=== PATIENT | female | born 1995 | race Caucasian/White ===

== ENCOUNTER 2017-07-16 13:28 | Inpatient (IN) | payer BC ==
--- NOTE | 2017-07-16 14:31 | EDPHY ---
H & P Stated Complaint: SI Source: Patient - Personal History LMP (Females 10-55): Now Current Tetanus/Diphtheria Vaccine: Yes - Medical/Surgical History Hx Asthma: No Hx Chronic Respiratory Disease: No Hx Diabetes: No Hx Cardiac Disease: No Hx Renal Disease: No Hx Cirrhosis: No Hx Alcoholism: No Hx HIV/AIDS: No Hx Splenectomy or Spleen Trauma: No Other PMH: Bipolar mood disorder - Social History Smoking Status: Current some day smoker Time Seen by Provider: 07/16/17 14:19 HPI/ROS: CHIEF COMPLAINT: Suicidal ideation HISTORY OF PRESENT ILLNESS: The patient presents to the ED ongoing suicidal ideation. The patient reportedly has a history of bipolar disorder. She recently had in-patient psychiatric hospitalization in [place]. She reportedly is taking Lamictal and lithium for management of her symptoms. She has established a relationship with a therapist in [place] reportedly has seen a prescriber once. She reports she has been compliant with her medications. She denies significant drug or alcohol use. The patient does report that she is continuing to have increasing suicidal thoughts. The patient denies any acute medical complaints such as fever, cough or congestion. She denies any acute pain. REVIEW OF SYSTEMS: A comprehensive 10 point review of systems is otherwise negative aside from elements mentioned in the history of present illness. (Jarod Lima) - Physical Exam Exam: General Appearance: Alert, no distress Eyes: Pupils equal and round no pallor or injection ENT, Mouth: Mucous membranes moist Respiratory: There are no retractions, lungs are clear to auscultation Cardiovascular: Regular rate and rhythm Gastrointestinal: Abdomen is soft and nontender, no masses, bowel sounds normal Neurological: A&O, normal motor function, normal sensory exam, normal cranial nerves Skin: Warm and dry, no rashes Musculoskeletal: Neck is supple nontender Extremities: symmetrical, full range of motion Psychiatric: Depressed, cooperative, endorses suicidal ideation (Jarod Lima) Constitutional: Initial Vital Signs Temperature (C) 37 C 07/16/17 13:53 Heart Rate 76 07/16/17 13:53 Respiratory Rate 16 07/16/17 13:53 Blood Pressure 125/85 H 07/16/17 13:53 O2 Sat (%) 98 07/16/17 13:53 O2 Delivery Mode Room Air Allergies/Adverse Reactions: latex Allergy (Verified 07/16/17 13:52) Home Medications: Medication Instructions Recorded LaMICtal 07/16/17 [place] Carbonate 07/16/17 Microgestin 24 Fe 1 mg-20 Mcg 07/16/17 Medical Decision Making ED Course/Re-evaluation: The patient was medically cleared for psychiatric evaluation by myself at 3:20 p.m.. She was placed on an M1 psychiatric hold secondary to her suicidal ideation. Patient was re-evaluated at 8:00 p.m.. She is resting comfortably. She is still awaiting psychiatric evaluation. The patient will be turned over to Dr. Moody at shift change pending psychiatric disposition. (Jarod Lima) Re-evaluation by me at 10:35 p.m.. Patient is stable and resting comfortably. She has no complaints. Awaiting psychiatric evaluation (Mich Moody) 11:20 p.m.- The patient has been accepted at [address] [place] [address] at [facility] for inpatient hospitalization by Dr. Lemon. I have completed the EMTALA form. (Diana Sofia) Differential Diagnosis: Differential diagnosis considered includes bipolar mood disorder, psychosis, depression, suicidal ideation (Jarod Lima) Care Turn Over: Dr. Petty at 2245 (Mich Moody) - Data Points Laboratory Results: Laboratory Results 07/16/17 14:20 07/16/17 14:20 07/16/17 07/16/17 07/16/17 14:20 14:20 14:20 WBC RBC Hgb Hct MCV MCH MCHC RDW Plt Count MPV Neut % (Auto) Lymph % (Auto) [place] % (Auto) Eos % (Auto) Baso % (Auto) Nucleat RBC Rel Count Absolute Neuts (auto) Absolute Lymphs (auto) Absolute Monos (auto) Absolute Eos (auto) Absolute Basos (auto) Absolute Nucleated RBC Immature Gran % Immature Gran # Sodium 142 mEq/L mEq/L (135-145) Potassium 4.3 mEq/L mEq/L (3.5-5.2) Chloride 105 mEq/L mEq/L (97-110) Carbon Dioxide 24 mEq/l mEq/l (22-31) Anion Gap 13 mEq/L mEq/L (8-16) BUN 12 mg/dL mg/dL (7-23) Creatinine 0.9 mg/dL mg/dL (0.6-1.0) Estimated GFR > 60 Glucose 70 mg/dL mg/dL (70-100) Calcium 10.0 mg/dL mg/dL (8.5-10.4) Beta HCG, Qual NEGATIVE Urine Opiates Screen NEGATIVE (NEGATIVE) Urine Barbiturates NEGATIVE (NEGATIVE) Ur Phencyclidine Scrn NEGATIVE (NEGATIVE) Ur Amphetamine Screen NEGATIVE (NEGATIVE) U Benzodiazepines Scrn NEGATIVE (NEGATIVE) [place] 0.8 mEq/L mEq/L (0.6-1.2) Urine Cocaine Screen NEGATIVE (NEGATIVE) U Marijuana (THC) Screen NON-NEGATIVE H (NEGATIVE) Ethyl Alcohol < 10 mg/dL mg/dL (0-10) 07/16/17 14:20 WBC 7.98 10^3/uL 10^3/uL (3.80-9.50) RBC 4.52 10^6/uL 10^6/uL (4.18-5.33) Hgb 14.7 g/dL g/dL (12.6-16.3) Hct 42.5 % % (38.0-47.0) MCV 94.0 fL fL (81.5-99.8) MCH 32.5 pg pg (27.9-34.1) MCHC 34.6 g/dL g/dL (32.4-36.7) RDW 11.0 % L % (11.5-15.2) Plt Count 248 10^3/uL 10^3/uL (150-400) MPV 9.0 fL fL (8.7-11.7) Neut % (Auto) 71.4 % % (39.3-74.2) Lymph % (Auto) 20.6 % % (15.0-45.0) [place] % (Auto) 6.3 % % (4.5-13.0) Eos % (Auto) 1.0 % % (0.6-7.6) Baso % (Auto) 0.4 % % (0.3-1.7) Nucleat RBC Rel Count 0.0 % % (0.0-0.2) Absolute Neuts (auto) 5.71 10^3/uL 10^3/uL (1.70-6.50) Absolute Lymphs (auto) 1.64 10^3/uL 10^3/uL (1.00-3.00) Absolute Monos (auto) 0.50 10^3/uL 10^3/uL (0.30-0.80) Absolute Eos (auto) 0.08 10^3/uL 10^3/uL (0.03-0.40) Absolute Basos (auto) 0.03 10^3/uL 10^3/uL (0.02-0.10) Absolute Nucleated RBC 0.00 10^3/uL 10^3/uL (0-0.01) Immature Gran % 0.3 % % (0.0-1.1) Immature Gran # 0.02 10^3/uL 10^3/uL (0.00-0.10) Sodium Potassium Chloride Carbon Dioxide Anion Gap BUN Creatinine Estimated GFR Glucose Calcium Beta HCG, Qual Urine Opiates Screen Urine Barbiturates Ur Phencyclidine Scrn Ur Amphetamine Screen U Benzodiazepines Scrn [place] Urine Cocaine Screen U Marijuana (THC) Screen Ethyl Alcohol Departure - Departure Disposition: [facility] IP Clinical Impression: Suicidal ideation Condition: Fair Referrals: NONE *PRIMARY CARE P,. [Primary Care Provider] - As per Instructions
[2017-07-16 14:34] LABS: PLATELET COUNT 248 10^3/uL (150-400)
[2017-07-17] MEDS ORDERED: MAG HYDROX/AL HYDROX/SIMETH 30 ML UDCUP PO PRN (00:20)
[2017-07-17] MEDS ORDERED: LORazepam 0.5 MG TAB PO PRN (00:20)
[2017-07-17] MEDS ORDERED: NICOTINE POLACRILEX 2 MG GUM B PRN (00:20)
[2017-07-17] MEDS ORDERED: MAGNESIUM HYDROXIDE 30 ML UDCUP PO PRN (00:20)
[2017-07-17] MEDS: ACETAMINOPHEN 325 MG TAB PO PRN (00:47)
[2017-07-17 01:04] VITALS: RESP 14
[2017-07-17] MEDS: LITHIUM CARBONATE ER 450 MG TAB PO SCH (08:42)
[2017-07-17] MEDS: lamoTRIgine 100 MG TAB PO SCH (08:42)
[2017-07-17] MEDS ORDERED: OLANZapine 2.5 MG TAB PO ONE (12:58)
--- NOTE | 2017-07-17 14:07 | BCON ---
[f rep st] BEHAVIORAL HEALTH CONSULTATION INTERNAL MEDICINE CONSULTATION. DATE OF CONSULTATION: 07/17/2017 REFERRING PHYSICIAN: Agustina Lemon MD REASON FOR REFERRAL: Medical clearance for inpatient behavioral health stay. HISTORY OF PRESENT ILLNESS: This patient came to the emergency department yesterday with suicidal ideation. She has a history of bipolar disorder and a previous recent psychiatric hospitalization. She was evaluated by the mental health team and admitted for further psychiatric care. Currently, she is without any acute complaints other than reporting that she feels stressed. PAST MEDICAL HISTORY: Bipolar disorder. PAST SURGICAL HISTORY: She has not had any surgeries. MEDICATIONS: 1. control pill. 2. Oriental carbonate. 3. Lamictal. SOCIAL HISTORY: She is living with her uncle. She is an occasional cigarette smoker and reports that her cigarette smoking has reduced since she quit drinking approximately a month ago. She has recently moved from [place], [place] where most of her family lives. She is not employed nor is she in school. FAMILY HISTORY: Noncontributory. REVIEW OF SYSTEMS: She denies fevers, chills, weight change, cough, dyspnea, nausea, vomiting, constipation, diarrhea, dysuria or urinary frequency. Otherwise, a 10-point review of systems is negative. PHYSICAL EXAM: VITAL SIGNS: Blood pressure at 1 o'clock this morning was 135/ 65, heart rate was 86, respiratory rate was 14, oxygen saturation was 97% on room air. Temperature was 37 degrees centigrade. Her weight is 52.2 kg for a body mass index of 19.1. GENERAL: This is a well-nourished, well-developed woman who appears her chronologic age, cooperative and in no acute distress. HEENT: Extraocular movements are intact. Pupils are equal, round, reactive to light. Mucous membranes are moist. Dentition is in good condition. NECK: Supple. HEART: There is a regular rate and rhythm with no murmurs, rubs, or gallops. LUNGS: Clear to auscultation bilaterally. ABDOMEN: Benign. EXTREMITIES: There is no cyanosis, clubbing, or edema. NEUROLOGIC: She is alert and oriented x3. Cranial nerves 2-12 are grossly intact. There is no focal weakness. Sensation is intact to light touch and gait is within normal limits. SKIN: She has approximately 0.5 cm comedone on her right forehead along with scattered smaller comedones on the forehead. LABORATORY STUDIES: Drawn in the emergency department: CBC was overall within normal limits. She had a slightly small red cell distribution width of no clinical significance. Serum chemistry revealed normal renal function and electrolytes. Beta hCG was negative for . Toxicology screen in the serum revealed a lithium level of 0.8. There was no ethyl alcohol detected. Toxicology screen in the urine was non-negative for marijuana, but was otherwise negative for substances of abuse. ASSESSMENT/RECOMMENDATIONS: 1. Mental health issues pending further evaluation and management per Psychiatry and the mental health team. 2. Tobacco dependence syndrome. She has reduced her tobacco smoking, and she was congratulated on this. Smoking cessation was encouraged. 3. Acne vulgaris. She is not particularly concerned. Benzoyl peroxide is not available on the hospital formulary. She can follow up with her primary care provider after discharge. The first step would be an [id number] topical agent such as benzoyl peroxide. I see no medical contraindications to this patient's continued stay on the inpatient behavioral health unit or to any psychiatric medications or procedures. Thank you very much for including me in the care of this patient. Please do not hesitate to contact me or the hospitalist service should there be a need for further medical evaluation. /[id number]/MODL MTDD
--- NOTE | 2017-07-17 14:42 | BAPA ---
[f rep st] ADMISSION PSYCHIATRIC ASSESSMENT IDENTIFICATION: This is a 22-year-old, single white female who is living with her uncle here in [place]. She is currently unemployed. She moved to [place] from [place] a month ago. Her parents and sisters live in the [place] area. CHIEF COMPLAINT: "I hate it here." HISTORY OF PRESENT ILLNESS: The patient is a limited historian. She is circumstantial and vague at times. She reports that she is "manic and suicidal. " She reports that she has a history of bipolar disorder, has a history of going multiple days with very little sleep with agitation, racing thoughts, promiscuity, and impulsive behavior, alternating with depressive episodes of low mood, low energy, feeling hopeless and overwhelmed. She reports she was discharged from a psychiatric facility in [place] a month ago and then came to [place] to live with her uncle. Her uncle smokes marijuana. She smokes marijuana with him at times. She reports that he is "not very supportive" and reports feeling "anxious and on edge with him." Apparently, he discourages her from taking psychiatric medications. She reports that in the past week she has had recurrent thoughts of overdosing on medications. She reports feeling hopeless because she is no where near her family or friends. She reports she has severe mood swings where she is dysphoric, hopeless, sad, and suicidal, alternating with feeling energetic, agitated, and erratic with her thoughts with poor concentration and an over abundance of thoughts. She denies any violent thoughts. She denies any paranoia or hallucinations. She reports compliance with lithium 900 mg and Lamictal 300 mg which she has been taking from her recent psychiatric hospitalization. She admits to smoking cannabis twice a week. She denies any recent alcohol abuse. She reports a history of binge drinking alcohol including blackouts, nausea, vomiting, feeling sick and having relationship and functional impairment in the past. She denies any recent dangerous behaviors toward herself or others. She reports stress due to being from her friends in [place] and her family in [place]; she reports 'they shipped me out here to stay with my uncle and don't care about me. ' Per the chart, the patient is on an M1 hold from the emergency department after reporting suicidal thoughts to overdose on medications. She does endorse a history of borderline personality disorder symptoms. She reports having chronic mood instability, up and down relationships with peers, intense anger, acting-out behaviors when upset, feeling intense emotional distress of being ignored or feeling abandoned by others. She does report in the past being referred to dialectic behavior therapy groups in the past but not following through with that. PAST PSYCHIATRIC HISTORY: She reports she has struggled with depression and mood swings since age 13. She reports having medications for depression with numerous antidepressant trials with no benefit, including past Zoloft, Wellbutrin, Prozac and Lexapro and Cymbalta. She reports Cymbalta made her more anxious. She reports a history of abusing Adderall in the past when prescribed Adderall for ADHD. She reports past trials of Abilify, Latuda and Seroquel, is unsure if they were helpful or not. She reports possibly feeling akathisia or feeling violent after taking Latuda. She denies any actual suicide attempts. She denies any history of violence toward others. She reports 4 psychiatric hospitalizations starting at age 18 in the [place] area including [facility], [facility], [facility]. She denies any current legal problems. PAST MEDICAL HISTORY: She reports history of tonsillectomy and episodic nausea. She takes Microgestin oral contraceptive pill and has no plan for . Denies TBI or seizures. ALLERGIES: Latex. SOCIAL HISTORY: She was raised by her parents without abuse or neglect. She denies any history of trauma. Both of her parents and multiple siblings live in the [place] area. She is currently living with her uncle here in [place]. She graduated from high school and only did 1 year of college. She is unemployed. She has never been , has no children, has never been in the . FAMILY HISTORY: She reports her father is a recovering alcoholic. Her mother takes Zoloft for anxiety. Her parents and siblings are physically healthy. She has a family history of Alzheimer disease in 2 grandparents as well. She denies any family history of suicide. LABS: White blood cell count 7.9, hemoglobin 14.7, platelet count 248. Sodium 142, potassium 4.3, creatinine 0.9, glucose 70, calcium 10.0. Serum beta HCG was negative. Urine drug screen was positive for cannabis only, negative for other drugs of abuse. Blood was negative for alcohol with a lithium level of 0.8. CURRENT MEDICATIONS: [place] 900 mg a day, Lamictal 300 mg a day. She reports she has been taking Lamictal for several years and has no history of a rash with this medication. PHYSICAL EXAMINATION: VITAL SIGNS: She is 165 cm, 52.1 kg with a BMI of 19.1. She has a blood pressure 139/65, heart rate 86, respiratory rate 14, pulse ox 97% on room air, temperature is 37 degrees. GENERAL: She is an ambulatory white female. She appears thin. She has very severe emotional lability on the unit. She is pacing at times, crying and screaming on the phone. Other times appearing withdrawn. Other times socializing with other patients and appearing euthymic. During interview, she is euphoric and laughing at times, other times dysphoric, tearful, crying, and appears somewhat agitated. Her speech is loud at times, but regular in rate and rhythm. Her thoughts are organized. She denies violent thoughts. She denies paranoia or hallucinations. She reports daily thoughts of suicide by overdosing on pills over the past week. She has fair memory, limited insight and impaired judgment. ASSESSMENT: Bipolar disorder type 1, most recent episode depressed, severe, with mixed features; Borderline personality disorder; Cannabis use disorder, mild; History of alcohol use disorder, severe. The overall assessment is the patient is on M1 hold for reporting suicidal thoughts to overdose. The patient apparently has had multiple hospitalizations for severe mood symptoms in [place] but no past suicide attempts. She is currently describing numerous symptoms of borderline personality disorder including feeling abandoned by her parents and siblings and friends and feeling ignored by her uncle. She also has severe emotional dysregulation with no coping skills at this time. The patient does appear to have a mixed episode of bipolar disorder despite taking lithium and Lamictal. PLAN: 1. Added on a hemoglobin A1c, lipid panel, TSH, ALT and AST to the blood work from the ER. 2. Continue lithium 900 mg daily. 3. Continue Lamictal 300 mg daily. Discussed the risk of Garrison-Luis syndrome. Patient reports she has taken this medication for 3 years and has been on this dose for over a month. 4. The patient is on M1 hold and will be on suicide precautions with 15 minute checks. 5. Discussed the risks and benefits of mood stabilizer medications for mixed episode including increasing the dose of lithium, however, the patient reports in past having blurred vision, nausea and diarrhea with a higher dose of lithium. The patient is agreeable to start olanzapine 2.5 mg now and 2.5 mg p.o. q.h.s. as a mood stabilizer. 6. Ordered hydroxyzine 25 mg q.6 hours p.r.n. anxiety or insomnia 7. Patient was given handouts on borderline personality disorder, bipolar disorder, and a handout from the [employer] regarding olanzapine including a description of the risks of metabolic syndrome and tardive dyskinesia. 8. We will attempt to get collateral information from the patient's family and previous psychiatric hospitalizations. /[id number]/MODL MTDD
[2017-07-17] MEDS ORDERED: OLANZapine 2.5 MG TAB PO SCH (21:00)
[2017-07-18] MEDS: lamoTRIgine 100 MG TAB PO SCH (08:42)
[2017-07-18] MEDS: LITHIUM CARBONATE ER 450 MG TAB PO SCH (08:42)
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
[2017-07-18] MEDS: ACETAMINOPHEN 325 MG TAB PO PRN (14:23)
[2017-07-18] MEDS: hydrOXYzine HCL 25 MG TAB PO PRN (20:07)
[2017-07-18] MEDS: OLANZapine 2.5 MG TAB PO SCH (20:07)
[2017-07-19] MEDS: OMEGA-3 FATTY ACIDS 1,000 MG CAP PO SCH (08:52)
[2017-07-19] MEDS: lamoTRIgine 100 MG TAB PO SCH (08:52)
[2017-07-19] MEDS: LITHIUM CARBONATE ER 450 MG TAB PO SCH (08:52)
[2017-07-19] MEDS: FOLIC ACID 1 MG TAB PO SCH (08:52)
--- NOTE | 2017-07-19 11:48 | SOAPPROG ---
SOAP Progress Note Assessment/Plan: Assessment: Bipolar Disorder I depressed with mixed features Borderline PD Cannabis Use Disorder Mild History of Alcohol Use Disorder Employment, housing problems Patient admitted on M-1 hold for report of suicidal thoughts to overdose. Patient appears more euthymic and appropriate but had significant mood lability yesterday; denies SI Plan: Patient agrees to voluntary treatment Continue Olanzapine 5mg QHS for mood stabilization, started after admission Continue [place] 900mg Continue Lamictal 300mg Monitor mood, risk of self-harm Education about bipolar disorder and borderline PD Coordinate discharge planning with parents in [place] or uncle in [place] Plan discharge Saturday07/22/17 if continuing to improve 07/19/17 11:50 Subjective: CC: "Better I think" Patient reports yesterday having brief episodes of feeling agitated, irritable, and briefly severely dysphoric with brief tearfulness. Reports sleeping well and feels more calm this AM and denies severe mood swings this AM. Reports today feeling more hopeful about the future and denies SI. Reports goal is feel well enough to get a job. Reports enjoying interacting with children and wants to get a job involving childcare or education. Reports prior to admit feeling alone, 'stressed out' with severe mood swings. Reports tolerating Olanzapine, feels it is improving mood stability, does not want dose increase due to fear of side effects, but wants to continue taking. Interested in therapy for Borderline PD after discharge and getting medication management from a psychiatrist. Objective: Vital Signs Temp Pulse Resp BP Pulse Ox 36.7 C 58 L 14 92/67 L 100 07/19/17 06:00 07/19/17 06:00 07/19/17 06:00 07/19/17 06:00 07/19/17 06:00 Alert WF. Brief smiling, anxious affect at times. Speech RRR, briefly loud. Mood 'better I think.' Thoughts organized. Denies SI/HI/AH/paranoia. Improved insight. Appropriate judgment. Staff report patient slept 10 hours. Labile on unit yesterday but able to calmly attend ART group this AM. - Time Spent With Patient Time Spent With Patient: 30 minutes - Pending Discharge Pending Discharge Within 24 Hours: No Pending Discharge Within 48 Hours: No ICD10 Worksheet Patient Problems: Problems Problem Status Onset Bipolar disorder, unspecified Acute Borderline personality disorder Acute Cannabis abuse Acute Suicidal ideation Acute
[2017-07-19] MEDS: OLANZapine 2.5 MG TAB PO SCH (20:36)
[2017-07-19] MEDS: hydrOXYzine HCL 25 MG TAB PO PRN (20:36)
[2017-07-20 07:07] VITALS: O2SAT 96
[2017-07-20] MEDS: lamoTRIgine 100 MG TAB PO SCH (09:21)
[2017-07-20] MEDS: FOLIC ACID 1 MG TAB PO SCH (09:21)
[2017-07-20] MEDS: OMEGA-3 FATTY ACIDS 1,000 MG CAP PO SCH (09:21)
[2017-07-20] MEDS: LITHIUM CARBONATE ER 450 MG TAB PO SCH (09:21)
[2017-07-20] MEDS: OLANZapine DISINTEGR 5 MG TAB PO PRN (14:16)
--- NOTE | 2017-07-20 15:53 | SOAPPROG ---
SOAP Progress Note Assessment/Plan: Assessment: Per Dr. Ch's notes: Assessment: Bipolar Disorder I depressed with mixed features Borderline PD Cannabis Use Disorder Mild History of Alcohol Use Disorder Employment, housing problems Patient admitted on M-1 hold for report of suicidal thoughts to overdose. Patient appears more euthymic and appropriate but had significant mood lability yesterday; denies SI Plan: Patient agrees to voluntary treatment Continue Olanzapine 5mg QHS for mood stabilization, started after admission Continue [place] 900mg Continue Lamictal 300mg Monitor mood, risk of self-harm Education about bipolar disorder and borderline PD Coordinate discharge planning with parents in [place] or uncle in [place] Plan discharge Saturday07/22/17 if continuing to improve Plan: 07/20/17 15:47 1. Patient denies any mood related problems. Denies any SI/HI. 2. Reports Olanzapine has "fixed" her mood. 3. Wants to d/c on Saturday, but isn't sure yet where she will go. Subjective: Met with patient, reviewed chart and d/w staff. Patient says she is feeling "better" and "more stable" on new medication, Olanzapine. She says the new med has "fixed" her mood problem. She denies feeling sad, anxious or depressed. She denies any thoughts, plan or intent to harm herself or anyone else. There is no evidence of branden or mixed symptoms. She denies any psychotic symptoms. She says she doesn't know where she wants to live after d/c. She doesn't get along well with her uncle where she was living in [place]. But she also doesn't know "where I would live in [place]" if she returned to [place]. Patient's FOC called several times and left call back number, but patient says she would rather visit with her friend, Edis, than call her FOC back. MD encouraged her to talk to her FOC today to find out if she can stay somewhere other than at uncle's house or get a flight back to [place]. Objective: Vital Signs Temp Pulse Resp BP Pulse Ox 36.6 C 77 14 91/54 L 96 07/20/17 06:00 07/20/17 06:00 07/20/17 06:00 07/20/17 06:00 07/20/17 06:00 MSE: Affect: Euthymic Mood: "Stable" TP: Linear TC: Denies any SI/HI, no AH/ VH Insight/Judgment: Poor - Time Spent With Patient Time Spent With Patient: 20" - Pending Discharge Pending Discharge Within 24 Hours: No Pending Discharge Within 48 Hours: Yes Pending Discharge Date: 07/22/17 (Will likely d/c on Saturday ) Pending Discharge Time: 11:00 ICD10 Worksheet Patient Problems: Problems Problem Status Onset Bipolar disorder, unspecified Acute Borderline personality disorder Acute Cannabis abuse Acute Suicidal ideation Acute
[2017-07-20] MEDS: OLANZapine 2.5 MG TAB PO SCH (20:14)
[2017-07-20] MEDS: hydrOXYzine HCL 25 MG TAB PO PRN (21:09)
[2017-07-21] MEDS: LITHIUM CARBONATE ER 450 MG TAB PO SCH (08:28)
[2017-07-21] MEDS: OMEGA-3 FATTY ACIDS 1,000 MG CAP PO SCH (08:29)
[2017-07-21] MEDS: lamoTRIgine 100 MG TAB PO SCH (08:29)
[2017-07-21] MEDS: FOLIC ACID 1 MG TAB PO SCH (08:29)
--- NOTE | 2017-07-21 15:12 | SOAPPROG ---
SOAP Progress Note Assessment/Plan: Assessment: Per Dr. Ch's notes: Assessment: Bipolar Disorder I depressed with mixed features Borderline PD Cannabis Use Disorder Mild History of Alcohol Use Disorder Employment, housing problems Patient admitted on M-1 hold for report of suicidal thoughts to overdose. Patient appears more euthymic and appropriate but had significant mood lability yesterday; denies SI Plan: Patient agrees to voluntary treatment Continue Olanzapine 5mg QHS for mood stabilization, started after admission Continue [place] 900mg Continue Lamictal 300mg Monitor mood, risk of self-harm Education about bipolar disorder and borderline PD Coordinate discharge planning with parents in [place] or uncle in [place] Plan discharge Saturday07/22/17 if continuing to improve Plan: 07/20/17 15:47 1. Patient denies any mood related problems. Denies any SI/HI. 2. Reports Olanzapine has "fixed" her mood. 3. Wants to d/c on Saturday, but isn't sure yet where she will go. 07/21/17 15:08 1. Patient denies any SI/HI. 2. Patient plans to stay in [place] and "get a job." 3. Still wants to d/c on Saturday. Subjective: Met with patient, reviewed chart and d/w staff. Patient spoke to her MOC and FOC by phone yesterday. She says her family doesn't want her to return to [place] b/c too many of her friends use drugs and are a bad influence. The patient has also met a "friend" at [facility] she likes. She plans to return to uncle's house and will start looking for a job and a place to live on her own. She says her family will help support her. She will f/u with providers at [facility] for medications and therapy. She denies any SI/HI. Objective: Vital Signs Temp Pulse Resp BP Pulse Ox 36.6 C 70 14 107/63 96 07/21/17 06:00 07/21/17 06:00 07/21/17 06:00 07/21/17 06:00 07/21/17 06:00 MSE: Affect: Euthymic Mood: "Good" TP: Linear TC: Denies any SI/HI, no AH/VH Insight/Judgment: Fair - Time Spent With Patient Time Spent With Patient: 15" - Pending Discharge Pending Discharge Within 24 Hours: No Pending Discharge Within 48 Hours: No ICD10 Worksheet Patient Problems: Problems Problem Status Onset Bipolar disorder, unspecified Acute Borderline personality disorder Acute Cannabis abuse Acute Suicidal ideation Acute
[2017-07-21] MEDS: OLANZapine DISINTEGR 5 MG TAB PO PRN (15:36)
[2017-07-21] MEDS: OLANZapine 2.5 MG TAB PO SCH (20:40)
[2017-07-22 06:27] VITALS: BP 110/69; PULSE 72; TEMP 97.9
[2017-07-22] MEDS: LITHIUM CARBONATE ER 450 MG TAB PO SCH (08:14)
[2017-07-22] MEDS: FOLIC ACID 1 MG TAB PO SCH (08:14)
[2017-07-22] MEDS: lamoTRIgine 100 MG TAB PO SCH (08:14)
[2017-07-22] MEDS: OMEGA-3 FATTY ACIDS 1,000 MG CAP PO SCH (08:14)
--- NOTE | 2017-07-22 12:58 | BDS ---
[f rep st] BEHAVIORAL HEALTH DISCHARGE SUMMARY IDENTIFICATION: This is a 22-year-old single white female who lives with her uncle. She has never been and has no children. She graduated from high school. Her parents and her sisters live in the [place] area. She has been in [place] for 1 month. REASON FOR ADMISSION: Please see initial psychiatric evaluation from July 17, 2017. The patient apparently has a history of bipolar disorder and borderline personality disorder with a history of several psychiatric hospitalizations in the [place] area. She also has a history of binge drinking alcohol. The patient moved out to [place], [place] to live with her uncle. She was taking lithium 900 mg a day, Lamictal 300 mg a day prior to the admission. She had been smoking cannabis, but had been abstaining from alcohol. She was admitted for recurrent thoughts of overdosing on pills. She also reported severe hypersensitivity to the actions of her family, friends, and uncle, was angry with them, felt abandoned, felt ignored by her uncle and her family, and felt hopeless. She was having mixed manic symptoms with racing thoughts, agitation, severe mood swings, and severe mood dysregulation. HOSPITAL COURSE: The patient was admitted for suicidal thoughts to overdose on pills. The patient was extremely agitated, labile, loud, tangential, and irrational. She was started on olanzapine 5 mg at night. She was continued on Lamictal 300 mg a day and lithium 900 mg a day. The patient also takes a prescription oral contraceptive pill. The patient had a marked improvement. She became less emotionally dysregulated, more calm, less agitated, less labile. The patient initially reported that she wanted to return to the [facility], where her parents and her siblings live. However, apparently they wanted her to move to [place] to get away from several friends that she was binge drinking alcohol with. The patient was receptive to a diagnosis of borderline personality disorder. She endorsed numerous symptoms including lack of self-direction, hypersensitivity to the actions of others, recurrent fear of being abandoned and ignored, difficulty with emotion regulation and anger. The patient was receptive to discussion of the importance of receiving dialectic behavior therapy for counseling after discharge for borderline personality disorder. The patient did endorse numerous symptoms of bipolar disorder and reported significant improvement in her mood stability. She, on the unit, did appear to have improvement. She became less agitated, less labile, and more organized with her thinking and less dramatic in her behaviors. She initially was tearful, crying, screaming, intrusive at the nurse's station and agitated on the phone with her family and friends. This improved dramatically during the course of the hospitalization. Prior to discharge, the patient reported that she no longer wanted to move back to the [place] area with her parents in her sisters. She, instead, wanted to continue living in the [facility] with her uncle. The patient was agreeable to the importance of outpatient psychotherapy for borderline personality disorder and medication management for bipolar disorder after discharge. The patient was counseled about the risks of her medications. She was counseled about the risks of Garrison-Luis syndrome with Lamictal. The patient reported she had taken Lamictal for about 3 years and had been on the current dose for many months. She was given information about the risks of lithium causing defects, hypothyroidism, and renal dysfunction, and signs and symptoms of toxicity. She was also given information about the risks of olanzapine including tardive dyskinesia, sedation, weight gain, metabolic syndrome. CONDITION ON DISCHARGE: She is an alert white female in no acute distress who is ambulatory, cooperative, pleasant. She has good eye contact. Her affect is euthymic and reactive. Her mood is "pretty good." Her thoughts are organized. She denies any thoughts to hurt herself or others. She denies hallucinations or paranoia. Her memory is fair. Her insight is fair. Her judgment is appropriate. CONSULTATIONS: The patient had a baseline physical exam by Dr. Fishman on July 17, 2017. PROCEDURES: None. LABS PENDING: None. LABS: She had a white blood cell count of 7.9, hemoglobin 14.7, platelet count 248. Sodium 142, potassium 4.3, creatinine 0.9, glucose 70. Hemoglobin A1c 4.4. Calcium 10.0, AST 34, ALT 22. Triglycerides 159, LDL 89, HDL 69. TSH 3.5. Serum beta HCG was negative. Urine tox screen was positive for cannabis. [place] level of 0.8. Serum alcohol level was negative. ADVANCE DIRECTIVE: The patient declined advance directive. NICOTINE USE DISORDER SCREENING: The patient denied regular use of nicotine products. ALCOHOL USE DISORDER SCREENING: The patient denied alcohol use in the past month. She does report a history of binge drinking. She was not interested in substance abuse treatment at this time. DISCHARGE DIAGNOSES: Bipolar disorder type 1, most recent episode depressed, severe, with mixed features. Borderline personality disorder. Cannabis use disorder, mild. History of alcohol use disorder. DISCHARGE MEDICATIONS: [place] extended release 900 mg by mouth daily (which is two 450 mg capsules daily), olanzapine 5 mg p.o. at bedtime, Lamictal 300 mg p.o. daily, folic acid 1 mg daily, omega-3 fatty acids 1000 mg daily. The patient also takes a prescription oral contraceptive pill from her primary care provider. DISPOSITION: The patient is leaving the unit with her uncle. FOLLOWUP: The patient has outpatient individual therapy and psychiatric medication management. See patient accounts coordinator notes. LEGAL STATUS: The patient was admitted on an M1 hold, then agreed to receive voluntary treatment in the hospital and will be discharged to be receiving outpatient treatment on a voluntary basis. /[id number]/MODL MTDD
== END 2017-07-22 16:10 | disposition home or self-care (01) | DRG 885 ==
LOC: BBEH 07-17 00:10
PROVIDERS: ADMIT Psychiatry & Neurology Behavioral Neurology & Neuropsychiatry
DX: F31.5 Bipolar disorder, current episode depressed, severe, with psychotic features (principal); F60.3 Borderline personality disorder; F12.10 Cannabis abuse, uncomplicated; R45.851 Suicidal ideations; F17.210 Nicotine dependence, cigarettes, uncomplicated; L70.0 Acne vulgaris; Z63.8 Other specified problems related to primary support group
CPT/HCPCS: 80305; G0480

== ENCOUNTER 2017-10-23 13:54 | Emergency (ER) | payer BC ==
[2017-10-23 14:36] LABS: PLATELET COUNT 259 10^3/uL (150-400)
--- NOTE | 2017-10-23 14:41 | EDPHY ---
H & P Time Seen by Provider: 10/23/17 14:37 HPI/ROS: CHIEF COMPLAINT: Worried about lithium toxicity HISTORY OF PRESENT ILLNESS: 22-year-old woman presents concerned about lithium toxicity with blurry vision hand tremors and diarrhea for about a week. She said she had this back in November of last year when she 1st started lithium in [place], and thinks that her symptoms today are probably because of the heat but also worries that maybe it is from the lithium. She feels a little bit thirsty but has been drinking lots of water. Symptoms mild, no bloody diarrhea or melena. No double vision or headache. REVIEW OF SYSTEMS: Eye: HPI ENT: no sore throat Cardiac: no chest pain or syncope Pulmonary: no cough or SOB Abdomen: No abdominal pain Musculoskeletal: no back pain Skin: no rash Neuro: no headache Constitutional: no fever : no urinary symptoms A comprehensive 10 point review of systems is otherwise negative aside from elements mentioned in the history of present illness. PAST MEDICAL HISTORY: Includes bipolar mood disorder, clavicle fracture H 14, tonsillectomy Social history: Used to live in [place] but currently lives in [place], no recent foreign travel General Appearance: Alert and conversant, cooperative. Eyes: No scleral icterus. No nystagmus, pupils equal and reactive. ENT, Mouth: Normal mucous membranes. Respiratory: Normal respiratory effort, breath sounds equal, lungs are clear to auscultation. Cardiovascular: Regular rate and rhythm. Gastrointestinal: Abdomen is soft and non tender. Neurological: Alert, face symmetric, normal motor and sensory in extremities. No tremor observed by myself, normal [id number] and fluent speech. Skin: Warm and dry, no rashes. Musculoskeletal: No peripheral edema. Psychiatric: Not agitated. Emergency Department course/MDM: Labs ordered to include CBC chemistry and lithium level. 1520: Results discussed with the patient. She will call her psychiatrist today to slightly decrease her lithium dose and follow-up, her level is at the upper limit of normal, I do not think she requires admission or specific therapy for this. Smoking Status: Current some day smoker Constitutional: Initial Vital Signs Temperature (C) 36.9 C 10/23/17 13:59 Heart Rate 94 10/23/17 13:59 Respiratory Rate 17 10/23/17 13:59 Blood Pressure 130/90 H 10/23/17 13:59 O2 Sat (%) 96 10/23/17 13:59 O2 Delivery Mode Room Air Allergies/Adverse Reactions: latex Allergy (Verified 07/16/17 13:52) lurasidone [From Latuda] Allergy (Verified 07/17/17 17:38) Home Medications: Medication Instructions Recorded [place] Carbonate ER [Eskalith Cr 900 mg PO DAILY 07/18/17 450 mg (*)] Norethindrone-E.estradiol-Iron 1 each PO DAILY 07/18/17 [Microgestin 24 Fe 1 mg-20 Mcg] lamoTRIgine [Lamotrigine] 300 mg PO DAILY 07/18/17 Folic Acid [Folic Acid 1 MG (*)] 1 mg PO DAILY tab 07/22/17 [place] Carbonate ER [Eskalith Cr 900 mg PO DAILY 30 Days tab 07/22/17 450 mg (*)] OLANZapine [ZyPREXA 2.5 mg (*)] 5 mg PO HS #30 tab 07/22/17 [place]-3 Fatty Acids [Fish Oil 1000 1,000 mg PO DAILY cap 07/22/17 mg (*)] lamoTRIgine [LamICTAL 100 MG (*)] 300 mg PO DAILY #30 tab 07/22/17 Benztropine Mesylate 10/23/17 Medical Decision Making - Diagnostics EKG Interpretation: 12-lead EKG interpreted by me; official reading is in trace master. My interpretation is sinus rhythm, nonspecific T-wave flattening. - Data Points Laboratory Results: Laboratory Results 10/23/17 14:30 10/23/17 14:30 10/23/17 10/23/17 10/23/17 14:30 14:30 14:30 WBC 8.70 10^3/uL 10^3/uL (3.80-9.50) RBC 4.16 10^6/uL L 10^6/uL (4.18-5.33) Hgb 13.7 g/dL g/dL (12.6-16.3) Hct 38.1 % % (38.0-47.0) MCV 91.6 fL fL (81.5-99.8) MCH 32.9 pg pg (27.9-34.1) MCHC 36.0 g/dL g/dL (32.4-36.7) RDW 11.4 % L % (11.5-15.2) Plt Count 259 10^3/uL 10^3/uL (150-400) MPV 9.0 fL fL (8.7-11.7) Neut % (Auto) 73.3 % % (39.3-74.2) Lymph % (Auto) 18.4 % % (15.0-45.0) [place] % (Auto) 6.2 % % (4.5-13.0) Eos % (Auto) 1.7 % % (0.6-7.6) Baso % (Auto) 0.3 % % (0.3-1.7) Nucleat RBC Rel Count 0.0 % % (0.0-0.2) Absolute Neuts (auto) 6.37 10^3/uL 10^3/uL (1.70-6.50) Absolute Lymphs (auto) 1.60 10^3/uL 10^3/uL (1.00-3.00) Absolute Monos (auto) 0.54 10^3/uL 10^3/uL (0.30-0.80) Absolute Eos (auto) 0.15 10^3/uL 10^3/uL (0.03-0.40) Absolute Basos (auto) 0.03 10^3/uL 10^3/uL (0.02-0.10) Absolute Nucleated RBC 0.00 10^3/uL 10^3/uL (0-0.01) Immature Gran % 0.1 % % (0.0-1.1) Immature Gran # 0.01 10^3/uL 10^3/uL (0.00-0.10) Sodium 140 mEq/L mEq/L (135-145) Potassium 4.0 mEq/L mEq/L (3.3-5.0) Chloride 110 mEq/L mEq/L (97-110) Carbon Dioxide 21 mEq/l L mEq/l (22-31) Anion Gap 9 mEq/L mEq/L (8-16) BUN 13 mg/dL mg/dL (7-23) Creatinine 0.8 mg/dL mg/dL (0.6-1.0) Estimated GFR > 60 Glucose 104 mg/dL H mg/dL (70-100) Calcium 9.7 mg/dL mg/dL (8.5-10.4) Beta HCG, Qual NEGATIVE [place] 1.2 mEq/L mEq/L (0.6-1.2) Departure - Departure Disposition: Home, Routine, Self-Care Clinical Impression: Bipolar disorder, unspecified Condition: Good Instructions: Bipolar Disorder (ED), [place] Toxicity (ED) Additional Instructions: Your lithium level was 1.2. Please call your psychiatrist today to discuss dosing. Referrals: NONE *PRIMARY CARE P,. [Primary Care Provider] - As per Instructions (Dr. Patricia Ochoa your psychiatrist)
--- NOTE | 2017-10-23 15:31 | CPEKG ---
Heart Rate: 65 RR Interval: 923 P-R Interval: 152 QRSD Interval: 88 QT Interval: 420 QTC Interval: 437 P [place]: 52 QRS [place]: 35 T Wave [place]: 14 EKG Severity - BORDERLINE ECG - EKG Impression: SINUS RHYTHM EKG Impression: BORDERLINE T ABNORMALITIES, ANTERIOR LEADS Electronically Signed By: James Donaldson 23-Oct-2017 15:41:57
[2017-10-23 15:40] VITALS: BP 125/78
== END 2017-10-23 15:40 | disposition home or self-care (01) ==
DX: F31.9 Bipolar disorder, unspecified (principal); F17.200 Nicotine dependence, unspecified, uncomplicated; Z91.040 Latex allergy status